=== PATIENT | male | born 1940 | race Hispanic/Latino ===

== ENCOUNTER 2017-02-27 02:42 | Inpatient (IN) | payer MEDICARE ==
--- NOTE | 2017-02-27 02:46 | C.PDOC ---
Time Seen by Provider: 02/27/17 02:44 Past Medical History - Medical History PMH: CHF, HTN, Hypothyroidism Denies: Chronic Kidney Disease Surgical History: CABG (x5 vessels), Pacemaker - [facility] Procedures IMMOBILIZ/WOUND ATTN [facility] (10/05/13) - Social History Hx Alcohol Use: No Hx Substance Use: No - Immunization History Hx Tetanus Toxoid Vaccination: No Hx Influenza Vaccination: No Hx Pneumococcal Vaccination: Yes Disposition Counseled Patient/Family Regarding: Studies Performed, Diagnosis - Disposition Disposition Time: 02:46
[2017-02-27 02:47] VITALS: BMI 25.7
--- NOTE | 2017-02-27 02:52 | C.PDOC ---
History Of Present Illness Patient presents to the ER with a complaint of AMS and left facial droop as per . Patients states he was not feeling well and was last seen talking at baseline at 16:00. states she heard him coughing and went to see him again at 21:00 and found him confused, not talking and with a left facial droop. Denies any recent injury, fever, chills, or chest pain. Time Seen by Provider: 02/27/17 02:44 Chief Complaint (Nursing): Altered Mental Status History Per: Family History/Exam Limitations: Clinical Condition Onset/Duration Of Symptoms: Hrs (Since 21:00) Onset Of Symptoms: Cannot Confirm Onset Usual Baseline: Unknown Exacerbating Factor(s): Unknown Use Of Anticoag/Antiplatelets: Unknown Character Of Deficits: Left: Weakness (Facial droop) Speech Is: Other (Not talking) Decreased Ability To: Other (Speak) Severity: None Pain Scale Rating Of: 0 Recent travel outside of the [place]: No Additional History Per: Family Associated Symptoms: Confused, Other (Left facial droop) Past Medical History Reviewed: Historical Data, Nursing Documentation, Vital Signs Vital Signs: Last Vital Signs Temp 98.5 F 02/27/17 04:46 Pulse 102 H 02/27/17 04:46 Resp 21 02/27/17 04:46 BP 100/66 02/27/17 04:46 Pulse Ox 97 02/27/17 04:52 - Medical History PMH: CHF, HTN, Hypothyroidism Surgical History: CABG (x5 vessels), Pacemaker - [facility] Procedures IMMOBILIZ/WOUND ATTN [facility] (10/05/13) Family History: States: No Known Family Hx - Social History Hx Alcohol Use: No Hx Substance Use: No - Immunization History Hx Tetanus Toxoid Vaccination: No Hx Influenza Vaccination: No Hx Pneumococcal Vaccination: Yes Review Of Systems Constitutional: Negative for: Fever, Chills ENT: Negative for: Mouth Pain Cardiovascular: Negative for: Chest Pain Respiratory: Positive for: Shortness of Breath Gastrointestinal: Negative for: Nausea, Vomiting, Abdominal Pain Genitourinary: Negative for: Dysuria Musculoskeletal: Negative for: Back Pain Skin: Positive for: Rash. Negative for: Bruising Neurological: Positive for: Confusion, Altered Mental Status, Other (Left facial droop) Psych: Negative for: Anxiety Physical Exam - Physical Exam Appears: Non-toxic, In Acute Distress Skin: Warm, Dry Head: Normacephalic Eye(s): bilateral: Normal Inspection Oral Mucosa: Dry Teeth: Edentulous Neck: Supple Chest: Other (Left sided pacemaker) Cardiovascular: Rhythm Regular, No Murmur Respiratory: No Rales, Rhonchi (Scattered), No Wheezing Gastrointestinal/Abdominal: Soft, No Tenderness, Distention, Other (Tympanic to percussion) Back: Normal Inspection Extremity: No Pedal Edema, Other (Poor peripheral vascular skin changes. No weakness to extremities.) Extremity: Bilateral: Atraumatic Neurological/Psych: Slow To Respond With Command, Dysarthria, Other (Awake, alert, and oriented x1) Gait: Unable To Assess ED Course And Treatment - Laboratory Results Result Diagrams: 02/27/17 03:28 02/27/17 03:28 ECG: Interpreted By Me, Viewed By Me ECG Rhythm: Sinus Tachycardia (119), Nonspecific Changes (ventricular paced) O2 Sat by Pulse Oximetry: 97 Pulse Ox Interpretation: Normal - Radiology CXR Interpretation: Yes: Other (pacer left, unchanged from 12/14/16). No: No Acute Disease, Fracture, Pnemothorax - CT Scan/US Head CT w/o contrast Other Rad Studies (CT/US): Read By Radiologist, Radiology Report Reviewed CT/US Interpretation: IMPRESSION: 1. Cerebral and cerebellar atrophy. 2. Small vessel ischemic/degenerative changes. Progress Note: EKG, blood work, CXR, and urinalysis ordered. CT of head w/o contrast ordered. 4:30 Droop is resolving. Pt more alert and responsive Critical Care Time - Critical Care Note Total Time (in mins): 30 Documented critical care: time excludes all time spent performing seperately billable procedures. NIHSS Stroke Scale - Date/Time Evaluation Performed Date Performed: 02/27/17 Time Performed: 02:45 When Was NIHSS Performed: Baseline - How Severe is the Stoke Level of Consciousness: 1=Drowsy LOC to Questions: 0=Both comments correct LOC to commands: 0=Obeys both correctly Best Gaze: 0=Normal Visual: 0=No visual loss Facial: 2=Partial (lower face paralysis) Motor Arm - Left: 1=Drift noted before 10 sec Motor Arm - Right: 0=No drift Motor Leg - Left: 0=No drift Motor Leg - Right: 0=No drift Limb Ataxia: 0=Absent Sensory: 0=Normal Best Language: 0=No aphasia Dysarthia: 1=Mild to moderate slurring Extinction & Inattention (Neglect): 0=Normal, no object Score: 5 Severity Of Stroke: 5-15= Moderate Stroke rTPA Inclusion/Exclusion - Refusal of Treatment Patient Refused Treatment: No - Inclusion Criteria for Altepase Patient is 18 years or Older: Yes Clinical DX Ischemic Stroke Cause Neurological Deficit: Yes Time of Onset Established Less Than 270 Mins Before TX Begin: No Risk/Benefit Discussed With Patient/Family Member Present: Yes - Exclusion Criteria for Altepase Uncontrolled Hypertension at Time of TX (SBP>185 or DBP>110): No Active Internal Bleeding: No Known Bleeding Diathesis: No Evidence of an Intracranial Hemorrhage: No Evidence Major Acute Infarct w/ Signs Greater Than 1/3 MCA: No Suspicion of Subarachnoid Bleed on PreTX Eval(CT: neg bleed): No - Warning to TPA With Conditions Following Conditions Weighed Against Anticipated Benefit: Yes Condition: Age Greater Than 75 years (pt outside the window. Last seen at baseline on 02/26/17 4pm) Disposition Discussed With : Drea Pappas Comment: accepted the pt on her service and took over the care at 4:51 PM Counseled Patient/Family Regarding: Studies Performed, Diagnosis - Disposition Disposition: HOSPITALIZED Disposition Time: 02:48 Condition: FAIR - Clinical Impression Clinical Impression: TIA (transient ischemic attack), UTI (urinary tract infection), Hyperglycemia - Scribe Statement The provider has reviewed the documentation as recorded by the Scribe Michael Nina All medical record entries made by the Scribe were at my direction and personally dictated by me. I have reviewed the chart and agree that the record accurately reflects my personal performance of the history, physical exam, medical decision making, and the department course for this patient. I have also personally directed, reviewed, and agree with the discharge instructions and disposition. Decision To Admit - Pt Status Changed To: Hospital Disposition Of: Inpatient - Admit Certification Admit to Inpatient:: After my assessment, the patient will require hospitalization for at least two midnights. This is because of the severity of symptoms shown, intensity of services needed, and/or the medical risk in this patient being treated as an outpatient. - InPatient: Physician Admission Certification:: After my assessment, the patient will require hospitalization for at least two midnights. This is because of the severity of symptoms shown, intensity of services needed, and/or the medical risk in this patient being treated as an outpatient. - . Bed Request Type: Telemetry Admitting Physician: Drea Pappas Patient Diagnosis: TIA (transient ischemic attack), UTI (urinary tract infection), Hyperglycemia
[2017-02-27 03:30] LABS: BASO # 0.1 K/uL (0.0-0.2); BASO % 0.6 % (0.0-2.0); EOS % 0.2 % (0.0-4.0); HEMATOCRIT 40.9 % (35.0-51.0); LYMPH % 6.1 % (20.0-40.0); MEAN CELL VOLUME 86.1 fL (80.0-94.0); MEAN CORPUSCULAR HGB CONC 33.7 g/dL (33.0-37.0); MEAN PLATELET VOLUME 7.5 fL (7.2-11.7); MONO # 0.6 K/uL (0.0-0.8); MONO % 3.9 % (0.0-10.0); NRBC % 0.1 % (0.0-2.0); PLATELET COUNT 245 K/uL (130-400); RED CELL DISTRIBUTION WIDTH 15.3 % (11.5-14.5); WHITE BLOOD COUNT 15.7 K/uL (4.8-10.8)
[2017-02-27 03:41] LABS: POTASSIUM 4.1 mmol/L (3.6-5.2); SODIUM 134 mmol/L (132-148)
[2017-02-27 03:43] LABS: BILIRUBIN,TOTAL 1.9 mg/dL (0.2-1.3); GFR AFRICAN-AMERICAN > 60
[2017-02-27 03:44] LABS: ALKALINE PHOSPHATASE 76 U/L (38-126); ALT/SGPT 10 U/L (21-72); AST/SGOT 24 U/L (17-59); BLOOD UREA NITROGEN 18 mg/dL (9-20); CALCIUM 8.8 mg/dl (8.6-10.4); CARBON DIOXIDE 20 mmol/L (22-30); GLUCOSE,RANDOM 225 mg/dL (75-110); TOTAL PROTEIN 7.8 g/dL (6.3-8.3)
[2017-02-27 03:46] LABS: CHLORIDE 99 mmol/L (98-107)
[2017-02-27 04:02] LABS: ABG ALLEN TEST POS; DRAW SITE L RAD
[2017-02-27 04:21] LABS: RBC URINE 2 /hpf (0-3); URINE BACTERIA MANY (<OCC); URINE BILIRUBIN NEGATIVE (NEGATIVE); URINE BLOOD NEGATIVE (NEGATIVE); URINE COLOR Amber (YELLOW); URINE GLUCOSE (UA) NORMAL (Normal); URINE KETONE 1+ mg/dL (NEGATIVE); URINE LEUKOCYTE ESTERASE 3+ Leu/uL (Negative); URINE PROTEIN 2+ mg/dL (NEGATIVE); WBC URINE 134 /hpf (0-5)
[2017-02-27 04:22] LABS: EOSINOPHIL 1 % (0-4); NEUTROPHIL 88 % (50-75); TOTAL CELLS COUNTED 100
[2017-02-27] MEDS ORDERED: Piperacillin/Tazobact 3.375 gm 100 ML IVPB STA (04:27)
[2017-02-27] MEDS ORDERED: Sodium Chloride 0.9% 500 ML IV ONE ×2 (04:31→04:37)
[2017-02-27] MEDS ORDERED: Piperacillin/Tazobact 3.375 gm 100 ML IVPB ONE (04:31)
[2017-02-27] MEDS ORDERED: Dextrose 5%/0.45% NS 1,000 ML IV SCH (07:00)
--- NOTE | 2017-02-27 07:41 | CT ---
PROCEDURE: CT HEAD WITHOUT CONTRAST. HISTORY: left facial droop COMPARISON: None available. TECHNIQUE: Axial computed tomography images were obtained through the head/brain without intravenous contrast. Radiation dose: Total exam DLP = 2287 mGy-cm. This CT exam was performed using one or more of the following dose reduction techniques: Automated exposure control, adjustment of the mA and/or kV according to patient size, and/or use of iterative reconstruction technique. FINDINGS: HEMORRHAGE: No intracranial hemorrhage. BRAIN: Cerebral and cerebellar atrophy. Scattered focal lucencies in the subcortical and periventricular white matter suggestive for chronic microvascular ischemic change. Small vessel ischemic/degenerative changes. VENTRICLES: Unremarkable. No hydrocephalus. CALVARIUM: Unremarkable. PARANASAL SINUSES: Unremarkable as visualized. No significant inflammatory changes. MASTOID AIR CELLS: Unremarkable as visualized. No inflammatory changes. OTHER FINDINGS: Intracranial arterial calcifications. Study limited by motion artifact and suboptimal patient positioning. IMPRESSION: Study limited by motion artifact and suboptimal patient positioning. Cerebral and cerebellar atrophy. Small vessel ischemic/degenerative changes. If focal neurologic deficit persists, consider MRI. These findings were preliminarily reported at 3:19 on 02/27/[address] William Santana from [facility].
[2017-02-27] MEDS: (Novolog) Insulin Aspart, Recombinant 100 u/ml 10 ml vial SC SCH ×4 (07:56→22:01)
--- NOTE | 2017-02-27 09:02 | RAD ---
PROCEDURE: CHEST RADIOGRAPH, 1 VIEW HISTORY: Diabetic COMPARISON: 12/14/2016 FINDINGS: LUNGS: Chin obscures left lung apex. Repeat study may be helpful. Mild venous congestion. Right lower lung linear atelectasis. Bilateral hilar prominence. PLEURA: As above. CARDIOVASCULAR: Cardiomegaly. Left-sided pacemaker. OSSEOUS STRUCTURES: No significant abnormalities. VISUALIZED UPPER ABDOMEN: Normal. OTHER FINDINGS: None. IMPRESSION: Chin obscures left lung apex. Repeat study may be helpful. Mild venous congestion. Right lower lung linear atelectasis. Bilateral hilar prominence.
--- NOTE | 2017-02-27 10:51 | CP.PCM.HP ---
History of Present Illness - History of Present Illness History of Present Illness: pt brought to ed for altered mental status which resolved after few hrs Present on Admission - Present on Admission Any Indicators Present on Admission: Yes History of Uncontrolled Diabetes: Yes Review of Systems - Review of Systems Systems not reviewed;Unavailable: Acuity of Condition, Altered Mental Status - Constitutional Constitutional: Fatigue - EENT Eyes: As Per HPI Nose/Mouth/Throat: As Per HPI - Cardiovascular Cardiovascular: Dyspnea - Respiratory Respiratory: Dyspnea on Exertion - Gastrointestinal Gastrointestinal: Loose Stools - Genitourinary Genitourinary: Urinary Frequency - Musculoskeletal Musculoskeletal: As Per HPI - Integumentary Integumentary: Rash Additional comments: both legs - Endocrine Additional Comments: dm - Hematologic/Lymphatic Hematologic: As Per HPI Past Patient History - Infectious Disease Hx of Infectious Diseases: None - Past Medical History & Family History Past Medical History?: Yes - Past Social History Smoking Status: Never Smoked Home Situation {Lives}: With Family - CARDIAC Hx Congestive Heart Failure: Yes Hx Hypertension: Yes Hx Pacemaker: Yes - PULMONARY Hx Respiratory Disorders: No - NEUROLOGICAL Hx Neurological Disorder: No - HEENT Hx HEENT Problems: No - RENAL Hx Chronic Kidney Disease: No - ENDOCRINE/METABOLIC Hx Hypothyroidism: Yes - HEMATOLOGICAL/ONCOLOGICAL Hx Blood Disorders: No - INTEGUMENTARY Hx Dermatological Problems: No - MUSCULOSKELETAL/RHEUMATOLOGICAL Hx Musculoskeletal Disorders: Yes Hx Falls: No Hx Unsteady Gait: Yes - GASTROINTESTINAL Hx Gastrointestinal Disorders: No - GENITOURINARY/GYNECOLOGICAL Hx Genitourinary Disorders: No - PSYCHIATRIC Hx Substance Use: No - SURGICAL HISTORY Hx Coronary Artery Bypass Graft: Yes (x5 vessels) - ANESTHESIA Hx Anesthesia: Yes Hx Anesthesia Reactions: No Hx Malignant Hyperthermia: No Meds Allergies/Adverse Reactions: Allergies Allergy/AdvReac Type Severity Reaction Status Date / Time No Known Allergies Allergy Verified 02/27/17 03:32 Physical Exam - Head Exam Head Exam: ATRAUMATIC - Eye Exam Eye Exam: Normal appearance - ENT Exam ENT Exam: Mucous Membranes Moist - Neck Exam Neck exam: Positive for: Normal Inspection - Respiratory Exam Respiratory Exam: Decreased Breath Sounds - Cardiovascular Exam Cardiovascular Exam: REGULAR RHYTHM - GI/Abdominal Exam GI & Abdominal Exam: Normal Bowel Sounds - Rectal Exam Rectal Exam: NORMAL INSPECTION - Exam Exam: NORMAL INSPECTION - Extremities Exam Additional comments: black color dermatitis - Back Exam Back exam: NORMAL INSPECTION - Psychiatric Exam Psychiatric exam: Normal Affect - Skin Skin Exam: Normal Color Results - Vital Signs Recent Vital Signs: Last Vital Signs Temp 98 F 02/27/17 07:25 Pulse 88 02/27/17 07:25 Resp 18 02/27/17 07:25 BP 95/63 L 02/27/17 07:25 Pulse Ox 100 02/27/17 07:25 - Labs Result Diagrams: 02/27/17 03:28 02/27/17 03:28 Assessment & Plan - Assessment and Plan (Free Text) Assessment: ac altered mental status tia small vessel disease of brain atrophy ac urosepses dm chf Plan: as per orders - Date & Time Date: 02/27/17 Time: 10:58
[2017-02-27] MEDS: Piperacill/Tazo 3.375gm in Dex 3.375 GM/50 ML BAG IVPB SCH ×2 (13:49→22:01)
[2017-02-28] MEDS: Piperacill/Tazo 3.375gm in Dex 3.375 GM/50 ML BAG IVPB SCH ×3 (06:00→22:06)
[2017-02-28] MEDS: (Novolog) Insulin Aspart, Recombinant 100 u/ml 10 ml vial SC SCH ×4 (10:58→22:06)
--- NOTE | 2017-02-28 11:50 | CP.PCM.PN ---
Subjective - Date & Time of Evaluation Date of Evaluation: 02/28/17 Time of Evaluation: 11:00 - Subjective Subjective: DON IN CHART Objective - Vital Signs/Intake and Output Vital Signs (last 24 hours): Temp Pulse Resp BP Pulse Ox 98.2 F 75 20 109/67 98 02/27/17 23:45 02/28/17 06:00 02/27/17 23:45 02/28/17 06:00 02/27/17 23:45 Intake and Output: 02/28/17 02/28/17 06:59 18:59 Intake Total 50 Output Total 250 Balance -200 - Medications Medications: Current Medications Aspirin (Aspirin Chewable) 81 mg PO DAILY [facility] Last Admin: 02/28/17 10:58 Dose: 81 mg Piperacillin Sod/Tazobactam Sod (Zosyn 3.375 Gm Iv Premix) 3.375 gm in 50 mls @ 100 mls/hr IVPB Q8H [facility] Last Admin: 02/28/17 06:00 Dose: 100 mls/hr Insulin Aspart (Novolog) 0 unit SC ACHS [facility] PRN Reason: Protocol Last Admin: 02/28/17 10:58 Dose: Not Given
--- NOTE | 2017-02-28 11:54 | CP.PCM.PN ---
Subjective - Date & Time of Evaluation Date of Evaluation: 02/28/17 Time of Evaluation: 11:51 - Subjective Subjective: AWAKE ALERT ORIENTED DENIED DISCOMFORT ABLE TO DRINK WATER PASSED SWALOW EVALUATION Objective - Vital Signs/Intake and Output Vital Signs (last 24 hours): Temp Pulse Resp BP Pulse Ox 98.2 F 75 20 109/67 98 02/27/17 23:45 02/28/17 06:00 02/27/17 23:45 02/28/17 06:00 02/27/17 23:45 Intake and Output: 02/28/17 02/28/17 06:59 18:59 Intake Total 50 Output Total 250 Balance -200 - Medications Medications: Current Medications Aspirin (Aspirin Chewable) 81 mg PO DAILY [facility] Last Admin: 02/28/17 10:58 Dose: 81 mg Piperacillin Sod/Tazobactam Sod (Zosyn 3.375 Gm Iv Premix) 3.375 gm in 50 mls @ 100 mls/hr IVPB Q8H [facility] Last Admin: 02/28/17 06:00 Dose: 100 mls/hr Insulin Aspart (Novolog) 0 unit SC ACHS [facility] PRN Reason: Protocol Last Admin: 02/28/17 10:58 Dose: Not Given - Constitutional Appears: Non-toxic - Head Exam Head Exam: NORMAL INSPECTION - Eye Exam Eye Exam: Normal appearance Pupil Exam: NORMAL ACCOMODATION - ENT Exam ENT Exam: Mucous Membranes Moist - Neck Exam Neck Exam: Full ROM - Respiratory Exam Respiratory Exam: Clear to Ausculation Bilateral - Cardiovascular Exam Cardiovascular Exam: REGULAR RHYTHM - GI/Abdominal Exam GI & Abdominal Exam: Normal Bowel Sounds - Rectal Exam Rectal Exam: NORMAL INSPECTION - Exam Exam: NORMAL INSPECTION - Extremities Exam Extremities Exam: Full ROM - Back Exam Back Exam: NORMAL INSPECTION - Neurological Exam Neurological Exam: Normal Gait, Oriented x3 - Psychiatric Exam Psychiatric exam: Normal Affect - Skin Skin Exam: Normal Color Assessment and Plan - Assessment and Plan (Free Text) Assessment: AMSIMPROVED TIA 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
[2017-02-28 17:59] LABS: CHOLESTEROL 153 mg/dL (0-199)
--- NOTE | 2017-02-28 18:09 | CARD ---
APPROVED REPORT EXAM: Two-dimensional and M-mode echocardiogram with Doppler and color Doppler. Other Information Quality : GoodRhythm : NSR INDICATION AMS, ACUTE UTI RISK FACTORS Hypertension Diabetes M-Mode DIMENSIONS RVDd1.05 (2.1-3.2cm)Left Atrium (MM)3.17 (2.5-4.0cm) IVSd0.70 (0.7-1.1cm)Aortic Root3.25 (2.2-3.7cm) LVDd6.39 (4.0-5.6cm)Aortic Cusp Exc.2.14 (1.5-2.0cm) PWd0.91 (0.7-1.1cm)FS (%) 28 % LVDs4.57 (2.0-3.8cm)LVEF (%)54 (>50%) Aortic Valve AoV Peak Bsbejmig73.4cm/Yaritza Peak GR.3mmHg Mitral Valve MV E Tnqxvpca06.8cm/sMV A Cbikxpmo03.6cm/sE/A ratio0.4 TDI E/Lateral E'0.0E/Medial E'0.0 Tricuspid Valve TR Peak Uoizxbgn546ni/sTR Peak Gr.31apOsJAUC05igIt LEFT VENTRICLE The Left Ventricle is mildly dilated. There is normal left ventricular wall thickness. The left ventricular function is normal. The left ventricular ejection fraction is within the normal range. The Ejection Fraction is 50-55%. No regional wall motion abnormalities noted. The left ventricular diastolic function is normal. No left ventricle thrombus noted on this study. There is no ventricular septal defect visualized. There is no left ventricular aneurysm. There is no mass noted in the left ventricle. RIGHT VENTRICLE The right ventricle is normal size. There is normal right ventricular wall thickness. The right ventricular systolic function is normal. ATRIA The left atrium size is normal. The right atrium size is normal. The interatrial septum is intact with no evidence for an atrial septal defect. AORTIC VALVE The aortic valve is normal in structure and function. No aortic regurgitation is present. There is no aortic valvular stenosis. There is no aortic valvular vegetation. MITRAL VALVE The mitral valve is normal in structure and function. There is no evidence of mitral valve prolapse. There is no mitral valve stenosis. There is no mitral valve regurgitation noted. TRICUSPID VALVE The tricuspid valve is normal in structure and function. There is no tricuspid valve regurgitation noted. There is no tricuspid valve prolapse or vegetation. There is no tricuspid valve stenosis. PULMONIC VALVE The pulmonary valve is normal in structure and function. There is no pulmonic valvular regurgitation. There is no pulmonic valvular stenosis. GREAT VESSELS The aortic root is normal in size. The ascending aorta is normal in size. The pulmonary artery is normal. The IVC is normal in size and collapses >50% with inspiration. PERICARDIAL EFFUSION The pericardium appears normal. There is no pleural effusion. <Conclusion> The Left Ventricle is mildly dilated. There is normal left ventricular wall thickness. The left ventricular function is normal. The Ejection Fraction is 50-55%.
[2017-03-01] MEDS: Piperacill/Tazo 3.375gm in Dex 3.375 GM/50 ML BAG IVPB SCH (05:43)
--- NOTE | 2017-03-01 07:28 | CON ---
DATE: 02/27/2017 HISTORY OF PRESENT ILLNESS: This is a 76-year-old male who came to the Emergency Room with left faci al droop and as per and altered mental status. The patient was not feeling well, sat down and j ust slumped on the left side. The states she heard him coughing and found him confused and brou ght him to the hospital. PAST MEDICAL HISTORY: The patient had coronary artery disease and several stents, status post cardia c bypass, hypertension, hypothyroidism, status post pacemaker. REVIEW OF SYSTEMS: A 10-point review of systems was negative except confusion. PHYSICAL EXAMINATION: VITAL SIGNS: Blood pressure 100/56. HEENT: Normocephalic, atraumatic. NECK: Supple. NEUROLOGIC: Alert, oriented x 3. No aphasia. Cranial nerves II through XII were tested. Pupils re active. EOM intact. Visual mar full. No facial asymmetry. Tongue midline. Motor examination: Moves all the extremities spontaneously. Deep tendon reflexes 1+. Both plantars are downgoing. Se nsory appears intact. Cerebellar gait deferred. IMPRESSION: Intermittent confusional state status post code stroke and workup in progress. LABORATORY DATA: WBC 15.7, hemoglobin 13.8, hematocrit 40.9, platelets 245. Sodium 134, potassium 4 .1, chloride 99, CO2 of 20, glucose , BUN 18, and creatinine 1.1. PLAN: Workup in progress. Continue present management. . Miguel Farias MD cc: [id number] TT: 02/27/2017 20:22:37 Confirmation # [id number] Dictation # [id number] mn
[2017-03-01 07:47] LABS: HEMATOCRIT 38.6 % (35.0-51.0); MEAN CELL VOLUME 86.5 fL (80.0-94.0); MEAN CORPUSCULAR HEMOGLOBIN 29.2 pg (27.0-31.0); MEAN CORPUSCULAR HGB CONC 33.7 g/dL (33.0-37.0); MEAN PLATELET VOLUME 7.8 fL (7.2-11.7); RED CELL DISTRIBUTION WIDTH 15.3 % (11.5-14.5)
[2017-03-01 07:59] LABS: CHLORIDE 100 mmol/L (98-107)
[2017-03-01 08:00] LABS: POTASSIUM 3.4 mmol/L (3.6-5.2); SODIUM 136 mmol/L (132-148)
[2017-03-01 08:02] LABS: GFR AFRICAN-AMERICAN > 60
[2017-03-01 08:03] LABS: BLOOD UREA NITROGEN 14 mg/dL (9-20); CALCIUM 8.3 mg/dl (8.6-10.4); CARBON DIOXIDE 26 mmol/L (22-30); GLUCOSE,RANDOM 95 mg/dL (75-110)
[2017-03-01] MEDS: (Novolog) Insulin Aspart, Recombinant 100 u/ml 10 ml vial SC SCH ×3 (08:07→17:30)
--- NOTE | 2017-03-01 10:56 | VASCLAB ---
PROCEDURE: HISTORY: AMS COMPARISON: None available. TECHNIQUE: Grayscale and duplex Doppler evaluation of the cervical carotid and vertebral arteries were performed. The common carotid, carotid bifurcations and cervical Internal Carotid Artery (ICA) and proximal External Carotid Artery (ECA) were evaluated. The vertebral arteries were evaluated for gross patency and flow direction. Report prepared by Michael Vicente, BS, RVT FINDINGS: RIGHT CAROTID ARTERIES: 1. Common Carotid Artery: No significant focal plaque formation of the right common carotid artery. Maximum Peak Systolic velocity: 27 cm/sec: End-diastolic velocity 0 cm/sec. 2. Carotid Bifurcation: Calcific plaque formation. Maximum Peak Systolic velocity: 47 cm/sec: End-diastolic velocity 3 cm/sec. 3. Internal Carotid Artery: Severe plaque formation of the right proximal ICA which results in a hemodynamically significant stenosis. Plaque description: Calcific 3.1. Proximal Segment: Peak systolic velocity 0 cm/sec: End-diastolic velocity 0 cm/sec - % stenosis [place] 3.2. Middle Segment: Peak systolic velocity 0 cm/sec: End-diastolic velocity 0 cm/sec - % stenosis [place] 3.3. Distal Segment: Peak systolic velocity 0 cm/sec: End-diastolic velocity 0 cm/sec - % stenosis [place] 4. External Carotid Artery: No significant focal plaque formation. Peak systolic velocity 104 cm/sec 5. ICA/CCA Ratio: 1.7 LEFT CAROTID ARTERIES: 1. Common Carotid Artery: No significant focal plaque formation of the left common carotid artery. Maximum Peak Systolic velocity: cm/sec: End-diastolic velocity cm/sec. 2. Carotid Bifurcation: Calcific plaque formation. Maximum Peak Systolic velocity: cm/sec: End-diastolic velocity cm/sec. 3. Internal Carotid Artery: Moderate plaque formation of the left proximal ICA which dose not results in hemodynamically significant stenosis. Plaque description: Calcific 3.1. Proximal Segment: Peak systolic velocity 70 cm/sec: End-diastolic velocity 30 cm/sec - % stenosis 0-15% 3.2. Middle Segment: Peak systolic velocity 64 cm/sec: End-diastolic velocity 28 cm/sec - % stenosis 0-15% 3.3. Distal Segment: Peak systolic velocity 75 cm/sec: End-diastolic velocity 30 cm/sec - % stenosis 0-15% 4. External Carotid Artery: No significant focal plaque formation. Peak systolic velocity 67 cm/sec 5. ICA/CCA Ratio: 1.7 VERTEBRAL ARTERIES: 1. Right Vertebral Artery: The right vertebral artery flow direction is antegrade. 2. Left Vertebral Artery: The left vertebral artery flow direction is antegrade. OTHER FINDINGS: 1. Right Brachial Blood pressure: 124 mmHg. 2. Left Brachial Blood pressure: 120 mmHg. DAVID Mcgrath notified about the findings. IMPRESSION: RIGHT: Occlusion of the right internal carotid artery. LEFT: Duplex scan does not suggest hemodynamically significant stenosis of the left extracranial carotid arteries.
--- NOTE | 2017-03-01 11:22 | CP.PCM.PCO ---
Assessment & Plan - Assessment and Plan (Free Text) Assessment: NERUO COMMUNICATION NOTE: PATIENT AMS WAS SECONDARY TO INTERMITTENT CONFUSIONAL STATE SUPERIMPOSED OF UNDERLYING GENERAL MEDICAL CONDITIONS WITH UNDERLYING UTI AND TRANSIENT CEREBRAL HYPO PERFUSION FROM LOW BP. AMS RESOLVED. CONTINUE WITH PRESENT MANAGEMENT. RECONSULT IF NEEDED. MANAS MCKEON.
[2017-03-01] MEDS ORDERED: Potassium Chloride 20 mEq ER Tab PO ONE (14:00)
--- NOTE | 2017-03-01 14:18 | CARD ---
APPROVED REPORT EKG Measurement Heart [id number] <Conclusion> Ventricular-paced rhythm Abnormal ECG
[2017-03-01] MEDS: Meropenem 1 GM in Sodium Chloride 0.9% 100 ML IVPB SCH ×2 (14:49→21:42)
--- NOTE | 2017-03-01 15:43 | CP.PCM.CON ---
History of Present Illness - History of Present Illness History of Present Illness: dictated Past Patient History - Infectious Disease Hx of Infectious Diseases: None - Past Medical History & Family History Past Medical History?: Yes - Past Social History Smoking Status: Never Smoked Home Situation {Lives}: With Family - CARDIAC Hx Congestive Heart Failure: Yes Hx Hypertension: Yes - PULMONARY Hx Respiratory Disorders: No - NEUROLOGICAL Hx Neurological Disorder: No - HEENT Hx HEENT Problems: No - RENAL Hx Chronic Kidney Disease: No - ENDOCRINE/METABOLIC Hx Hypothyroidism: Yes - HEMATOLOGICAL/ONCOLOGICAL Hx Blood Disorders: No - INTEGUMENTARY Hx Dermatological Problems: No - MUSCULOSKELETAL/RHEUMATOLOGICAL Hx Musculoskeletal Disorders: Yes Hx Falls: No Hx Unsteady Gait: Yes - GASTROINTESTINAL Hx Gastrointestinal Disorders: No - GENITOURINARY/GYNECOLOGICAL Hx Genitourinary Disorders: No - PSYCHIATRIC Hx Substance Use: No - SURGICAL HISTORY Hx Coronary Artery Bypass Graft: Yes (x5 vessels) - ANESTHESIA Hx Anesthesia: Yes Hx Anesthesia Reactions: No Hx Malignant Hyperthermia: No Meds Allergies/Adverse Reactions: Allergies Allergy/AdvReac Type Severity Reaction Status Date / Time No Known Allergies Allergy Verified 02/27/17 03:32 - Medications Medications: Current Medications Aspirin (Aspirin Chewable) 81 mg PO DAILY [facility] Last Admin: 03/01/17 09:22 Dose: 81 mg Meropenem 1 gm/ Sodium (Chloride) 100 mls @ 200 mls/hr IVPB Q8 [facility] Last Admin: 03/01/17 14:49 Dose: 200 mls/hr Amikacin Sulfate 250 mg/ (Sodium Chloride) 101 mls @ 100 mls/hr IV Q12H [facility] Insulin Aspart (Novolog) 0 unit SC ACHS [facility] PRN Reason: Protocol Last Admin: 03/01/17 12:41 Dose: 2 unit Results - Vital Signs Recent Vital Signs: Last Vital Signs Temp 98.6 F 03/01/17 07:35 Pulse 70 03/01/17 08:00 Resp 20 03/01/17 07:35 BP 123/74 03/01/17 07:35 Pulse Ox 98 03/01/17 07:35 - Labs Result Diagrams: 03/01/17 07:26 03/01/17 04:00 Labs: Laboratory Results - last 24 hr 02/27/17 02/27/17 02/27/17 06:26 11:25 17:04 WBC RBC Hgb Hct MCV MCH MCHC RDW Plt Count MPV Sodium Potassium Chloride Carbon Dioxide Anion Gap BUN Creatinine Est GFR ( Amer) Est GFR (Non-Af Amer) POC Glucose (mg/dL) 196 H 148 H 142 H Random Glucose Calcium Triglycerides Cholesterol LDL Cholesterol Direct HDL Cholesterol 02/27/17 02/28/17 02/28/17 21:38 06:38 11:52 WBC RBC Hgb Hct MCV MCH MCHC RDW Plt Count MPV Sodium Potassium Chloride Carbon Dioxide Anion Gap BUN Creatinine Est GFR ( Amer) Est GFR (Non-Af Amer) POC Glucose (mg/dL) 158 H 93 159 H Random Glucose Calcium Triglycerides Cholesterol LDL Cholesterol Direct HDL Cholesterol 02/28/17 02/28/17 02/28/17 16:10 17:25 21:42 WBC RBC Hgb Hct MCV MCH MCHC RDW Plt Count MPV Sodium Potassium Chloride Carbon Dioxide Anion Gap BUN Creatinine Est GFR ( Amer) Est GFR (Non-Af Amer) POC Glucose (mg/dL) 95 104 Random Glucose Calcium Triglycerides 115 Cholesterol 153 LDL Cholesterol Direct 99 HDL Cholesterol 27 L 03/01/17 03/01/17 03/01/17 04:00 06:15 07:26 WBC 9.0 RBC 4.46 Hgb 13.0 Hct 38.6 MCV 86.5 MCH 29.2 MCHC 33.7 RDW 15.3 H Plt Count 154 MPV 7.8 Sodium 136 Potassium 3.4 L Chloride 100 Carbon Dioxide 26 Anion Gap 13 BUN 14 Creatinine 1.0 Est GFR ( Amer) > 60 Est GFR (Non-Af Amer) > 60 POC Glucose (mg/dL) 86 Random Glucose 95 Calcium 8.3 L Triglycerides Cholesterol LDL Cholesterol Direct HDL Cholesterol 03/01/17 11:12 WBC RBC Hgb Hct MCV MCH MCHC RDW Plt Count MPV Sodium Potassium Chloride Carbon Dioxide Anion Gap BUN Creatinine Est GFR ( Amer) Est GFR (Non-Af Amer) POC Glucose (mg/dL) 159 H Random Glucose Calcium Triglycerides Cholesterol LDL Cholesterol Direct HDL Cholesterol
--- NOTE | 2017-03-01 17:07 | CP.PCM.PN ---
Subjective - Date & Time of Evaluation Date of Evaluation: 03/01/17 Time of Evaluation: 17:04 - Subjective Subjective: weeke frequancy of urination Objective - Vital Signs/Intake and Output Vital Signs (last 24 hours): Temp Pulse Resp BP Pulse Ox 98.6 F 70 20 123/74 98 03/01/17 07:35 03/01/17 08:00 03/01/17 07:35 03/01/17 07:35 03/01/17 07:35 Intake and Output: 03/01/17 03/01/17 06:59 18:59 Intake Total 1080 720 Output Total 920 200 Balance 160 520 - Medications Medications: Current Medications Aspirin (Aspirin Chewable) 81 mg PO DAILY [facility] Last Admin: 03/01/17 09:22 Dose: 81 mg Meropenem 1 gm/ Sodium (Chloride) 100 mls @ 200 mls/hr IVPB Q8 [facility] Last Admin: 03/01/17 14:49 Dose: 200 mls/hr Amikacin Sulfate 250 mg/ (Sodium Chloride) 101 mls @ 100 mls/hr IV Q12H [facility] Insulin Aspart (Novolog) 0 unit SC ACHS [facility] PRN Reason: Protocol Last Admin: 03/01/17 12:41 Dose: 2 unit - Labs Labs: 03/01/17 07:26 03/01/17 04:00 - Constitutional Appears: Non-toxic - Head Exam Head Exam: NORMAL INSPECTION - Eye Exam Eye Exam: Normal appearance Pupil Exam: NORMAL ACCOMODATION - ENT Exam ENT Exam: Mucous Membranes Moist - Neck Exam Neck Exam: Full ROM - Respiratory Exam Respiratory Exam: NORMAL BREATHING PATTERN - Cardiovascular Exam Cardiovascular Exam: REGULAR RHYTHM - GI/Abdominal Exam GI & Abdominal Exam: Soft - Rectal Exam Rectal Exam: NORMAL INSPECTION - Back Exam Back Exam: NORMAL INSPECTION - Neurological Exam Neurological Exam: Awake - Psychiatric Exam Psychiatric exam: Normal Affect - Skin Skin Exam: Normal Color Assessment and Plan - Assessment and Plan (Free Text) Assessment: ams ac urosepses generalised weekness Plan: as per orders
--- NOTE | 2017-03-01 17:43 | CON ---
DATE: 03/01/2017 REQUESTING PHYSICIAN: Dr. Pappas. HISTORY OF PRESENT ILLNESS: This patient is a 76-year-old male. He was admitted on 02/27 with alter ed mental status. He also had a left facial droop. He was not feeling well. He is waking up at thi s time. He does say that he did not know when he came in. He was pretty confused and had a left fac ial droop. He came in with altered mental status. I am asked to see him because of resistant UTI. At this time he is awake. He denies any urinary symptoms, but he says he may have had urinary proble ms when he came in. His temperature was 98.5, pulse of 102 with altered mental status, respirations of 21, blood pressure of 100/66. PAST MEDICAL HISTORY: Significant for CHF, hypertension, hypothyroidism. He is not able to tell me what surgery he had. It seems he had a CABG with 5-vessel disease, has a pacemaker. FAMILY HISTORY: Noncontributory. SOCIAL HISTORY: Negative for smoking or drinking. No drug abuse reported here. REVIEW OF SYSTEMS: Which was in the ER was negative for fever or chills according to the ER note. T here was no history of mouth pain. No chest pain. He did have shortness of breath. No nausea and v omiting or abdominal pain reported at that time. It was negative for dysuria, back pain. It was pos itive for a rash when he came in and negative for bruising. He also was confused with altered mental status, so he had a rash, altered mental status. Psych history is negative. Now here he was getting medications, Zosyn, potassium and just now called me and we switched o milena to meropenem 1 gram q. 8 hours. PAST MEDICAL HISTORY: He has no history of infection. He has no history of smoking. He lives with family, CHF, hypertension, pacemaker is present. No respiratory problems. No neurological problems. No HEENT problems reported. No kidney problems reported. He is hypothyroid. He has no blood diso rders. No skin problems, but it was noted that he had a rash. I do not see any rash at this time. He has musculoskeletal problems, gait problems. GI problems were negative. UA was negative; however , his urine is positive for infection. He also had a surgery with coronary artery bypass graft via 5 vessels. ALLERGIES: He is not allergic to any medicine. His other medications I see are just aspirin. PHYSICAL EXAMINATION: VITAL SIGNS: Now, his temperature is 98.6, pulse is 70, blood pressure 123/74, respirations are 20. GENERAL: He is more awake. His vitals are stable. He is still kind of waking up. He does not whit mber much, but he was able to tell me he may have had urine infections in the past. HEENT: Unremarkable. Head is atraumatic. Pupils are reacting to light. Throat, no congestion. N o thrush noted. NECK: Supple. VEENA is flat. LUNGS: Clear. No crackles or rales present. HEART: S1, S2 regular. ABDOMEN: Soft, nontender, no guarding, no rigidity present. EXTREMITIES: No edema, clubbing or cyanosis. LABORATORY DATA: Noted. Labs show white count is 9, hemoglobin 13, hematocrit 38.6, platelet count is 154. Sodium is 136, potassium is 3.4, chloride is 100, bicarbonate is 26, anion gap is 13, BUN is 14, creatinine 1.0 and urine culture has Proteus, which is sensitive to imipenem, Invanz and also to amikacin poorly, but more sensitive to meropenem. A head CT was done. Head CT did not show any jayson rological acute findings. 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 He needs to be evaluated further by the neurologist. 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 Would also get a PSA and renal ultrasound to make sure there is no prostate enlargement. Since there is the mention of hyperthyroid we should do TSH and T4. We will follow. He does have a resistant UTI and will be on meropenem. Brock Bergeron MD cc: [id number] TT: 03/01/2017 17:43:03 Confirmation # [id number] Dictation # [id number] mn
--- NOTE | 2017-03-01 18:07 | US ---
PROCEDURE: Ultrasound of the Kidneys HISTORY: uti with MDRO COMPARISON: None available. TECHNIQUE: Sonogram of the kidneys. FINDINGS: RIGHT KIDNEY: Measures: 11.2 x 5.1 x 5.0 cm. 1.9 x 1.2 x 1.7 cm midpole renal cyst. Cortical thinning. No obstructing calculus or hydronephrosis identified. LEFT KIDNEY: Measures: 11.2 x 5.6 x 4.5 cm. 4.2 x 2.5 x 4.0 cm upper pole renal cyst. 2.4 x 2.3 x 2.6 cm midpole renal cyst. Cortical thinning. No obstructing calculus or hydronephrosis identified. OTHER FINDINGS: Prevoid urinary bladder volume measures approximately 6.4 x 6.9 x 7.6 cm, calculated volume 175.2 mL. Postvoid urinary bladder volume measures approximately 4.6 x 4.8 x 5.6 cm, calculated volume 64.8 mL. Bilateral ureteral jets are identified. IMPRESSION: Bilateral renal cysts. Bilateral renal cortical thinning. Prevoid urinary bladder volume 175.2 mL. Postvoid urinary bladder volume 64.8 mL.
[2017-03-02] MEDS: Meropenem 1 GM in Sodium Chloride 0.9% 100 ML IVPB SCH ×3 (06:21→22:00)
[2017-03-02 07:36] LABS: BASO % 0.4 % (0.0-2.0); EOS # 0.1 K/uL (0.0-0.7); EOS % 0.5 % (0.0-4.0); HEMATOCRIT 36.2 % (35.0-51.0); LYMPH # 0.8 K/uL (1.0-4.3); LYMPH % 7.5 % (20.0-40.0); MEAN CELL VOLUME 86.3 fL (80.0-94.0); MEAN CORPUSCULAR HEMOGLOBIN 29.5 pg (27.0-31.0); MEAN CORPUSCULAR HGB CONC 34.2 g/dL (33.0-37.0); MEAN PLATELET VOLUME 7.9 fL (7.2-11.7); NRBC % 0.1 % (0.0-2.0); PLATELET COUNT 150 K/uL (130-400); WHITE BLOOD COUNT 11.1 K/uL (4.8-10.8)
[2017-03-02 08:00] LABS: CHLORIDE 99 mmol/L (98-107)
[2017-03-02 08:01] LABS: POTASSIUM 3.6 mmol/L (3.6-5.2); SODIUM 134 mmol/L (132-148)
[2017-03-02 08:03] LABS: CARBON DIOXIDE 23 mmol/L (22-30); GFR AFRICAN-AMERICAN > 60
[2017-03-02 08:04] LABS: ALB/GLOB RATIO 0.9 (1.0-2.1); ALKALINE PHOSPHATASE 51 U/L (38-126); ALT/SGPT 17 U/L (21-72); AST/SGOT 18 U/L (17-59); BLOOD UREA NITROGEN 14 mg/dL (9-20); CALCIUM 8.1 mg/dl (8.6-10.4); GLUCOSE,RANDOM 108 mg/dL (75-110); MAGNESIUM 1.7 mg/dL (1.6-2.3); TOTAL PROTEIN 6.5 g/dL (6.3-8.3)
[2017-03-02 08:08] LABS: THYROID STIMULATING HORMONE 2.12 mIU/L (0.46-4.68)
[2017-03-02] MEDS: (Novolog) Insulin Aspart, Recombinant 100 u/ml 10 ml vial SC SCH ×4 (08:16→22:30)
[2017-03-02 09:54] LABS: NEUTROPHIL 82 % (50-75); REACTIVE LYMPHOCYTES 1 % (0-0); TOTAL CELLS COUNTED 100
--- NOTE | 2017-03-02 11:20 | CP.PCM.PN ---
Subjective - Date & Time of Evaluation Date of Evaluation: 02/16/17 Time of Evaluation: 11:18 - Subjective Subjective: pt feels beter weeke canot walk many steps Objective - Vital Signs/Intake and Output Vital Signs (last 24 hours): Temp Pulse Resp BP Pulse Ox 98.7 F 77 20 123/66 98 03/02/17 07:57 03/02/17 08:49 03/02/17 07:57 03/02/17 07:57 03/02/17 07:57 Intake and Output: 03/02/17 03/02/17 06:59 18:59 Intake Total 550 Balance 550 - Medications Medications: Current Medications Aspirin (Aspirin Chewable) 81 mg PO DAILY [facility] Last Admin: 03/02/17 09:30 Dose: 81 mg Meropenem 1 gm/ Sodium (Chloride) 100 mls @ 200 mls/hr IVPB Q8 [facility] Last Admin: 03/02/17 06:21 Dose: 200 mls/hr Amikacin Sulfate 250 mg/ (Sodium Chloride) 101 mls @ 100 mls/hr IV Q12H [facility] Last Admin: 03/02/17 04:12 Dose: 100 mls/hr Insulin Aspart (Novolog) 0 unit SC ACHS [facility] PRN Reason: Protocol Last Admin: 03/02/17 08:16 Dose: Not Given - Labs Labs: 03/02/17 07:09 03/02/17 07:09 - Constitutional Appears: Non-toxic - Head Exam Head Exam: NORMAL INSPECTION - Eye Exam Eye Exam: Normal appearance Pupil Exam: NORMAL ACCOMODATION - ENT Exam ENT Exam: Mucous Membranes Moist - Neck Exam Neck Exam: Full ROM - Respiratory Exam Respiratory Exam: Clear to Ausculation Bilateral - Cardiovascular Exam Cardiovascular Exam: REGULAR RHYTHM - GI/Abdominal Exam GI & Abdominal Exam: Soft - Rectal Exam Rectal Exam: NORMAL INSPECTION - Extremities Exam Extremities Exam: Normal Inspection - Back Exam Back Exam: NORMAL INSPECTION - Neurological Exam Neurological Exam: Alert, Oriented x3 - Psychiatric Exam Psychiatric exam: Normal Mood - Skin Skin Exam: Dry Assessment and Plan - Assessment and Plan (Free Text) Assessment: urosepses lecocytosis generalised weekness Plan[facility]
[2017-03-02] MEDS ORDERED: Potassium Chloride 20 mEq ER Tab PO ONE (11:45)
[2017-03-02 13:42] LABS: RBC URINE 3 /hpf (0-3); URINE BILIRUBIN NEGATIVE (NEGATIVE); URINE BLOOD 1+ (NEGATIVE); URINE COLOR Yellow (YELLOW); URINE GLUCOSE (UA) 1+ mg/dL (Normal); URINE KETONE 1+ mg/dL (NEGATIVE); URINE LEUKOCYTE ESTERASE 2+ Leu/uL (Negative); URINE PROTEIN NEGATIVE (NEGATIVE); URINE UROBILINOGEN NORMAL mg/dL (0.2-1.0); WBC URINE 15 /hpf (0-5)
[2017-03-03] MEDS: Meropenem 1 GM in Sodium Chloride 0.9% 100 ML IVPB SCH ×3 (05:00→21:49)
[2017-03-03] MEDS: (Novolog) Insulin Aspart, Recombinant 100 u/ml 10 ml vial SC SCH ×4 (09:26→21:55)
--- NOTE | 2017-03-03 11:02 | CP.PCM.PN ---
Subjective - Date & Time of Evaluation Date of Evaluation: 03/03/17 Time of Evaluation: 11:00 - Subjective Subjective: weeke in bed no c/o Objective - Vital Signs/Intake and Output Vital Signs (last 24 hours): Temp Pulse Resp BP Pulse Ox 98.0 F 76 76 H 131/73 100 03/03/17 08:12 03/03/17 08:12 03/03/17 08:12 03/03/17 08:12 03/03/17 08:12 Intake and Output: 03/03/17 03/03/17 06:59 18:59 Output Total 500 Balance -500 - Medications Medications: Current Medications Aspirin (Aspirin Chewable) 81 mg PO DAILY [facility] Last Admin: 03/03/17 09:43 Dose: 81 mg Meropenem 1 gm/ Sodium (Chloride) 100 mls @ 200 mls/hr IVPB Q8 [facility] Last Admin: 03/03/17 05:00 Dose: 200 mls/hr Amikacin Sulfate 250 mg/ (Sodium Chloride) 101 mls @ 100 mls/hr IV Q12H [facility] Last Admin: 03/03/17 03:00 Dose: 100 mls/hr Insulin Aspart (Novolog) 0 unit SC ACHS [facility] PRN Reason: Protocol Last Admin: 03/03/17 09:26 Dose: Not Given - Labs Labs: 03/02/17 07:09 03/02/17 07:09 - Constitutional Appears: Non-toxic - Eye Exam Eye Exam: Normal appearance - ENT Exam ENT Exam: Mucous Membranes Moist - Neck Exam Neck Exam: Normal Inspection - Respiratory Exam Respiratory Exam: Clear to Ausculation Bilateral - Cardiovascular Exam Cardiovascular Exam: REGULAR RHYTHM - GI/Abdominal Exam GI & Abdominal Exam: Normal Bowel Sounds - Rectal Exam Rectal Exam: NORMAL INSPECTION - Extremities Exam Extremities Exam: Normal Capillary Refill - Psychiatric Exam Psychiatric exam: Normal Affect - Skin Skin Exam: Normal Color Assessment and Plan - Assessment and Plan (Free Text) Assessment: acurosepses dementia generalised weekness Plan: uriculter show resistant to oral antibiotics thers alot of aimprovement on iv ab will sandra
[2017-03-04] MEDS: Meropenem 1 GM in Sodium Chloride 0.9% 100 ML IVPB SCH ×3 (05:30→21:07)
[2017-03-04 06:27] LABS: BASO % 0.2 % (0.0-2.0); EOS # 0.1 K/uL (0.0-0.7); HEMATOCRIT 33.7 % (35.0-51.0); LYMPH # 0.8 K/uL (1.0-4.3); LYMPH % 9.1 % (20.0-40.0); MEAN CELL VOLUME 85.9 fL (80.0-94.0); MEAN CORPUSCULAR HEMOGLOBIN 29.6 pg (27.0-31.0); MEAN CORPUSCULAR HGB CONC 34.5 g/dL (33.0-37.0); MEAN PLATELET VOLUME 7.9 fL (7.2-11.7); MONO # 0.7 K/uL (0.0-0.8); MONO % 8.4 % (0.0-10.0); PLATELET COUNT 174 K/uL (130-400); RED CELL DISTRIBUTION WIDTH 15.5 % (11.5-14.5); WHITE BLOOD COUNT 8.6 K/uL (4.8-10.8)
[2017-03-04 06:46] LABS: CHLORIDE 101 mmol/L (98-107); POTASSIUM 3.6 mmol/L (3.6-5.2); SODIUM 134 mmol/L (132-148)
[2017-03-04 06:49] LABS: ALB/GLOB RATIO 0.8 (1.0-2.1); ALKALINE PHOSPHATASE 76 U/L (38-126); ALT/SGPT 75 U/L (21-72); AST/SGOT 110 U/L (17-59); BILIRUBIN,TOTAL 0.9 mg/dL (0.2-1.3); BLOOD UREA NITROGEN 12 mg/dL (9-20); CARBON DIOXIDE 24 mmol/L (22-30); GFR AFRICAN-AMERICAN > 60; GLUCOSE,RANDOM 100 mg/dL (75-110)
[2017-03-04 06:50] LABS: CALCIUM 8.6 mg/dl (8.6-10.4)
[2017-03-04] MEDS: (Novolog) Insulin Aspart, Recombinant 100 u/ml 10 ml vial SC SCH ×4 (07:55→21:14)
[2017-03-04 08:24] LABS: EOSINOPHIL 1 % (0-4); NEUTROPHIL 86 % (50-75); TOTAL CELLS COUNTED 100
--- NOTE | 2017-03-04 17:12 | CP.PCM.PN ---
Subjective - Date & Time of Evaluation Date of Evaluation: 03/04/17 Time of Evaluation: 17:09 - Subjective Subjective: apere comfortable more oriented eating Objective - Vital Signs/Intake and Output Vital Signs (last 24 hours): Temp Pulse Resp BP Pulse Ox 97.6 F 65 20 128/76 100 03/04/17 15:12 03/04/17 15:12 03/04/17 15:12 03/04/17 15:12 03/04/17 15:12 Intake and Output: 03/04/17 03/04/17 06:59 18:59 Intake Total 1140 Output Total 1100 Balance 40 - Medications Medications: Current Medications Aspirin (Aspirin Chewable) 81 mg PO DAILY [facility] Last Admin: 03/04/17 09:15 Dose: 81 mg Meropenem 1 gm/ Sodium (Chloride) 100 mls @ 200 mls/hr IVPB Q8 [facility] Last Admin: 03/04/17 14:11 Dose: Not Given Insulin Aspart (Novolog) 0 unit SC ACHS [facility] PRN Reason: Protocol Last Admin: 03/04/17 14:12 Dose: Not Given - Labs Labs: 03/04/17 06:14 03/04/17 06:14 - Constitutional Appears: Non-toxic - Head Exam Head Exam: NORMAL INSPECTION - Eye Exam Eye Exam: Normal appearance Pupil Exam: NORMAL ACCOMODATION - ENT Exam ENT Exam: Mucous Membranes Moist - Neck Exam Neck Exam: Normal Inspection - Respiratory Exam Respiratory Exam: Clear to Ausculation Bilateral - Cardiovascular Exam Cardiovascular Exam: REGULAR RHYTHM - GI/Abdominal Exam GI & Abdominal Exam: Normal Bowel Sounds - Rectal Exam Rectal Exam: NORMAL INSPECTION - Exam External exam: NORMAL EXTERNAL EXAM - Extremities Exam Extremities Exam: Full ROM - Back Exam Back Exam: NORMAL INSPECTION - Neurological Exam Neurological Exam: Awake - Psychiatric Exam Psychiatric exam: Normal Affect - Skin Skin Exam: Normal Color Assessment and Plan - Assessment and Plan (Free Text) Assessment: urosepses almstatus due tosepses improvig e coli infection continu same iv ab repeate u/a in am dm controled generalised weekness
[2017-03-05] MEDS: Meropenem 1 GM in Sodium Chloride 0.9% 100 ML IVPB SCH ×3 (05:06→21:38)
[2017-03-05 07:30] LABS: RBC URINE 1 /hpf (0-3); URINE BACTERIA RARE (<OCC); URINE BILIRUBIN NEGATIVE (NEGATIVE); URINE BLOOD NEGATIVE (NEGATIVE); URINE COLOR Yellow (YELLOW); URINE GLUCOSE (UA) NORMAL (Normal); URINE KETONE NEGATIVE (NEGATIVE); URINE LEUKOCYTE ESTERASE NEG Leu/uL (Negative); URINE PROTEIN NEGATIVE (NEGATIVE); URINE UROBILINOGEN NORMAL mg/dL (0.2-1.0); WBC URINE 5 /hpf (0-5)
[2017-03-05] MEDS: (Novolog) Insulin Aspart, Recombinant 100 u/ml 10 ml vial SC SCH ×4 (08:44→21:43)
--- NOTE | 2017-03-05 09:55 | CP.PCM.PN ---
Subjective - Date & Time of Evaluation Date of Evaluation: 02/26/17 Time of Evaluation: 09:52 - Subjective Subjective: pt feels beter repeate u/a still has few pus cells will repeate after geting 2 oclock antibiotics if cleare will d/c today Objective - Vital Signs/Intake and Output Vital Signs (last 24 hours): Temp Pulse Resp BP Pulse Ox 87.7 F L 63 20 144/76 100 03/05/17 08:29 03/05/17 08:29 03/05/17 08:29 03/05/17 08:29 03/05/17 08:29 Intake and Output: 03/05/17 03/05/17 06:59 18:59 Intake Total 340 Output Total 1100 Balance -760 - Medications Medications: Current Medications Aspirin (Aspirin Chewable) 81 mg PO DAILY [facility] Last Admin: 03/04/17 09:15 Dose: 81 mg Meropenem 1 gm/ Sodium (Chloride) 100 mls @ 200 mls/hr IVPB Q8 [facility] Last Admin: 03/05/17 05:06 Dose: 200 mls/hr Insulin Aspart (Novolog) 0 unit SC ACHS [facility] PRN Reason: Protocol Last Admin: 03/05/17 08:44 Dose: Not Given - Labs Labs: 03/04/17 06:14 03/04/17 06:14 - Constitutional Appears: Non-toxic - Eye Exam Eye Exam: EOMI, PERRL Pupil Exam: NORMAL ACCOMODATION - ENT Exam ENT Exam: Normal Exam - Neck Exam Neck Exam: Normal Inspection - Respiratory Exam Respiratory Exam: Clear to Ausculation Bilateral - Cardiovascular Exam Cardiovascular Exam: REGULAR RHYTHM - GI/Abdominal Exam GI & Abdominal Exam: Hyperactive Bowel Sounds - Rectal Exam Rectal Exam: NORMAL INSPECTION - Exam External exam: NORMAL EXTERNAL EXAM - Neurological Exam Neurological Exam: Awake, Oriented x3 - Psychiatric Exam Psychiatric exam: Normal Affect - Skin Skin Exam: Normal Color Assessment and Plan - Assessment and Plan (Free Text) Assessment: amtdue to urosepses imroved Plan: await repeate u/a aneamia hyperglyceamia
[2017-03-05 17:13] LABS: RBC URINE 1 /hpf (0-3); URINE BACTERIA RARE (<OCC); URINE BILIRUBIN NEGATIVE (NEGATIVE); URINE BLOOD NEGATIVE (NEGATIVE); URINE COLOR Yellow (YELLOW); URINE GLUCOSE (UA) NORMAL (Normal); URINE HYALINE CAST 0-2 /lpf (0-2); URINE KETONE NEGATIVE (NEGATIVE); URINE LEUKOCYTE ESTERASE NEG Leu/uL (Negative); URINE PROTEIN NEGATIVE (NEGATIVE); URINE UROBILINOGEN NORMAL mg/dL (0.2-1.0); WBC URINE 4 /hpf (0-5)
[2017-03-06] MEDS: Meropenem 1 GM in Sodium Chloride 0.9% 100 ML IVPB SCH ×2 (05:02→15:08)
[2017-03-06 07:27] LABS: RBC URINE 1 /hpf (0-3); URINE BACTERIA RARE (<OCC); URINE BILIRUBIN NEGATIVE (NEGATIVE); URINE BLOOD NEGATIVE (NEGATIVE); URINE COLOR Straw (YELLOW); URINE GLUCOSE (UA) NORMAL (Normal); URINE KETONE NEGATIVE (NEGATIVE); URINE LEUKOCYTE ESTERASE NEG Leu/uL (Negative); URINE PROTEIN NEGATIVE (NEGATIVE); URINE UROBILINOGEN NORMAL mg/dL (0.2-1.0); WBC URINE 1 /hpf (0-5)
[2017-03-06 08:21] VITALS: RESP 20
[2017-03-06 08:22] LABS: BASO % 0.5 % (0.0-2.0); EOS # 0.1 K/uL (0.0-0.7); EOS % 1.6 % (0.0-4.0); HEMATOCRIT 36.8 % (35.0-51.0); LYMPH # 0.9 K/uL (1.0-4.3); LYMPH % 12.8 % (20.0-40.0); MEAN CELL VOLUME 85.1 fL (80.0-94.0); MEAN CORPUSCULAR HEMOGLOBIN 29.2 pg (27.0-31.0); MEAN CORPUSCULAR HGB CONC 34.3 g/dL (33.0-37.0); MEAN PLATELET VOLUME 7.5 fL (7.2-11.7); MONO # 0.8 K/uL (0.0-0.8); MONO % 11.8 % (0.0-10.0); RED CELL DISTRIBUTION WIDTH 15.1 % (11.5-14.5); WHITE BLOOD COUNT 6.9 K/uL (4.8-10.8)
[2017-03-06 08:32] LABS: CHLORIDE 100 mmol/L (98-107)
[2017-03-06 08:33] LABS: SODIUM 133 mmol/L (132-148)
[2017-03-06 08:35] LABS: ALB/GLOB RATIO 0.7 (1.0-2.1); ALKALINE PHOSPHATASE 83 U/L (38-126); AST/SGOT 75 U/L (17-59); BILIRUBIN,TOTAL 0.7 mg/dL (0.2-1.3); BLOOD UREA NITROGEN 14 mg/dL (9-20); CARBON DIOXIDE 26 mmol/L (22-30); GFR AFRICAN-AMERICAN > 60; GLUCOSE,RANDOM 107 mg/dL (75-110); TOTAL PROTEIN 6.5 g/dL (6.3-8.3)
[2017-03-06 08:36] LABS: ALT/SGPT 95 U/L (21-72); CALCIUM 8.6 mg/dl (8.6-10.4)
[2017-03-06] MEDS: (Novolog) Insulin Aspart, Recombinant 100 u/ml 10 ml vial SC SCH ×2 (08:44→14:01)
--- NOTE | 2017-03-06 14:31 | CP.PCM.PN ---
Subjective - Date & Time of Evaluation Date of Evaluation: 03/06/17 Time of Evaluation: 14:28 - Subjective Subjective: pt feels good weekecanot ambulate without help Objective - Vital Signs/Intake and Output Vital Signs (last 24 hours): Temp Pulse Resp BP Pulse Ox 97.7 F 68 20 149/82 99 03/06/17 07:00 03/06/17 12:03 03/06/17 07:00 03/06/17 07:00 03/06/17 07:00 - Medications Medications: Current Medications Aspirin (Aspirin Chewable) 81 mg PO DAILY [facility] Last Admin: 03/06/17 09:14 Dose: 81 mg Meropenem 1 gm/ Sodium (Chloride) 100 mls @ 200 mls/hr IVPB Q8 [facility] Last Admin: 03/06/17 05:02 Dose: 200 mls/hr Insulin Aspart (Novolog) 0 unit SC ACHS [facility] PRN Reason: Protocol Last Admin: 03/06/17 14:01 Dose: Not Given - Labs Labs: 03/06/17 08:13 03/06/17 08:13 - Constitutional Appears: Non-toxic - Head Exam Head Exam: NORMAL INSPECTION - ENT Exam ENT Exam: Normal Exam - Neck Exam Neck Exam: Normal Inspection - Respiratory Exam Respiratory Exam: Clear to Ausculation Bilateral - Cardiovascular Exam Cardiovascular Exam: REGULAR RHYTHM - GI/Abdominal Exam GI & Abdominal Exam: Normal Bowel Sounds - Rectal Exam Rectal Exam: NORMAL INSPECTION - Exam Exam: NORMAL INSPECTION External exam: NORMAL EXTERNAL EXAM - Back Exam Back Exam: NORMAL INSPECTION - Neurological Exam Neurological Exam: Awake, Oriented x3 - Psychiatric Exam Psychiatric exam: Normal Affect - Skin Skin Exam: Normal Color Additional comments: legs dermatitis Assessment and Plan - Assessment and Plan (Free Text) Assessment: ams secondry to urosepses improved dermatitis leg dm controled Plan: will d/c home with pt med and home health care f/u in ofice
[2017-03-06 15:54] VITALS: BP 157/81; PULSE 72; TEMP 97.5; O2SAT 100
--- NOTE | 2017-03-12 12:05 | DS ---
This is a 77-year-old who presented to the Emergency Room, brought by his because she found him confused and unable to respond accurately, and he is having also facial weakness as well as drooping of his face, and he also has a little bit of weakness of his upper extremity. At the time patient edy garland, was found to have urinary tract infection, and the urinary tract infection was resistant to most of the organisms. Infectious disease was called for his treatment; he has to have IV antibiotics. Bill howell also has a history of congestive heart failure, hypertension, hypothyroidism, and CABG 5 years ago, and he has a pacemaker. Initial CAT scan did not show any significant abnormalities except ischemic vascular disease and calcification. He was afebrile. His blood pressure was okay. Initially he wa s not really alert, oriented, but gradually he improved. His hemoglobin was normal. His BUN and cre atinine were normal. He was started on imipenem IV antibiotic. Chest x-ray was mild venous congesti on, especially on the right side of the lung, and he has some atelectasis and hilar prominence. His carotid ultrasound was right occlusion of the right internal carotid artery, and the left duplex scan suggested significant stenosis on the left extracranial carotid artery. He had a renal ultrasound b ecause of his enlarged prostate and there was no obstructive uropathy. The patient was improving wit h treatment and he was cleared by the infectious disease for the antibiotic, and he was discharged ho mt on the same medications, to follow up by his previous MD. He was given aspirin daily and multivit felix and physical therapy at home ____ blood test before he leaves. His hemoglobin 11.6, white count normal. His chemistry all normal. FINAL DIAGNOSES: Acute altered mental status and probably transient ischemic attack. 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 He has acute urinary tract infe ction, which was resistant to oral antibiotics and had to be given intravenous antibiotic, which impr zahra before discharge. He has a history of coronary artery disease, status post coronary artery bypa ss graft, and he has generalized weakness. Drea Pappas MD cc: [id number] TT: 03/12/2017 12:04:29 mn
== END 2017-03-06 17:00 | disposition home or self-care (01) | DRG 69 ==
LOC: C.ER 02:42 → C.6T 05:05
PROVIDERS: ADMIT Internal Medicine; ATTEND Internal Medicine
DX: G45.9 Transient cerebral ischemic attack, unspecified (principal); E11.65 Type 2 diabetes mellitus with hyperglycemia; F03.90 Unspecified dementia, unspecified severity, without behavioral disturbance, psychotic disturbance, mood disturbance, and anxiety; I11.0 Hypertensive heart disease with heart failure; I50.9 Heart failure, unspecified; N39.0 Urinary tract infection, site not specified; G31.89 Other specified degenerative diseases of nervous system; Z95.1 Presence of aortocoronary bypass graft; E03.9 Hypothyroidism, unspecified; Z95.0 Presence of cardiac pacemaker; R29.810 Facial weakness; B96.20 Unspecified Escherichia coli [E. coli] as the cause of diseases classified elsewhere; L30.9 Dermatitis, unspecified; G31.9 Degenerative disease of nervous system, unspecified; Z79.4 Long term (current) use of insulin